=== PATIENT | female | born 2000 | race African-American/Black ===

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

== ENCOUNTER 2018-09-20 14:32 | Emergency (ER) | payer MEDICAID ==
[~2018-09-20] VITALS: Ht 157.5 cm; Wt 102.3 kg
[2018-09-20 14:38] VITALS: Ht 157.5 cm; Wt 102.3 kg
[2018-09-20 15:09] LABS: BASOPHILS 0.2 % (0-2); EOSINOPHILS 1.6 % (0-7); HEMATOCRIT 41.1 % (36.0-48.0); HEMOGLOBIN 14.1 g/dL (12-16); IMMATURE GRANULOCYTES 0.1 % (0-5); LYMPHOCYTES 41.5 % (15-50); MCH 29.1 pg (26.0-34.0); MCHC 34.3 g/dL (31.0-37.0); MCV 84.7 fL (80.0-100.0); MEAN PLATELET VOLUME 9.6 fL (7.4-10.4); MONOCYTES 8.1 % (2-11); NEUTROPHILS 48.5 % (40-80); PLATELET COUNT 272 10x3/uL (130-400); RBC 4.85 10x6/uL (4.00-5.40); RDW 12.9 % (11.5-14.5)
[2018-09-20 15:35] LABS: ALBUMIN 3.7 g/dL (3.4-5.0); ALKALINE PHOSPHATASE 88 U/L (46-116); ALT (SGPT) 66 U/L (10-68); CALC OSMOLALITY 272 mosm/kg (275-300); CALCIUM 8.6 mg/dL (8.5-10.1); CARBON DIOXIDE 31.4 mmol/L (21.0-32.0); CHLORIDE - SERUM 103 mmol/L (98-107); CREATININE - SERUM 0.6 mg/dL (0.6-1.3); GLUCOSE 78 mg/dL (74-106); POTASSIUM - SERUM 4.1 mmol/L (3.5-5.1); PROTEIN - SERUM 7.4 g/dL (6.4-8.2); SODIUM 138 mmol/L (136-145); UREA NITROGEN 7 mg/dL (7-18); eGFR NON AFRICAN AMERICAN > 90 mL/min (90-120)
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
[2018-09-20 15:46] LABS: CKMB 0.7 U/L (0.0-3.6); CREATINE KINASE 88 UL (21-215); MAGNESIUM - SERUM 1.8 mg/dL (1.8-2.4)
[2018-09-20 15:48] LABS: TROPONIN-I < 0.017 ng/mL (0.000-0.060)
[2018-09-20 15:56] LABS: APPEARANCE CLEAR (CLEAR); BILIRUBIN NEGATIVE (NEGATIVE); COLOR YELLOW (YELLOW); GLUCOSE NEGATIVE (NEGATIVE); KETONE NEGATIVE (NEGATIVE); NITRITE NEGATIVE (NEGATIVE); PROTEIN NEGATIVE (NEGATIVE); UROBILINOGEN NORMAL (NORMAL)
[2018-09-20 16:07] LABS: HCG URINE NEGATIVE (NEGATIVE)
[2018-09-20 16:57] VITALS: BP 124/76
[2018-09-20] MEDS ORDERED: ZOFRAN8 MG PO (17:13)
[2018-09-20] MEDS ORDERED: OMEPRAZOLE40 MG PO (17:13)
[2018-09-20] MEDS ORDERED: TORADOL10 MG PO (17:13)
== END 2018-09-20 17:35 | disposition home or self-care (01) ==
LOC: D.ER 14:32
PROVIDERS: Family Medicine
DX: R07.81 Pleurodynia (principal); R11.2 Nausea with vomiting, unspecified; R10.11 Right upper quadrant pain

== ENCOUNTER 2019-01-16 15:46 | Emergency (ER) | payer MEDICAID ==
[~2019-01-16] VITALS: Ht 157.5 cm; Wt 104.5 kg
[~2019-01-16 15:46] MED LIST: OMEPRAZOLE40 MG PO; TORADOL10 MG PO; ZOFRAN8 MG PO
[2019-01-16 15:53] VITALS: Ht 157.5 cm; Wt 104.5 kg
[2019-01-16 16:12] LABS: BASOPHILS 0.3 % (0-2); EOSINOPHILS 2.3 % (0-7); HEMATOCRIT 42.3 % (36.0-48.0); HEMOGLOBIN 14.1 g/dL (12-16); IMMATURE GRANULOCYTES 0.1 % (0-5); LYMPHOCYTES 48.7 % (15-50); MCH 29.6 pg (26.0-34.0); MCHC 33.3 g/dL (31.0-37.0); MCV 88.7 fL (80.0-100.0); MEAN PLATELET VOLUME 9.8 fL (7.4-10.4); MONOCYTES 7.9 % (2-11); NEUTROPHILS 40.7 % (40-80); RBC 4.77 10x6/uL (4.00-5.40); RDW 12.9 % (11.5-14.5); WBC 7.1 10x3/uL (4.8-10.8)
[2019-01-16 16:13] LABS: PLATELET COUNT 334 10x3/uL (130-400)
[2019-01-16 16:21] LABS: CALC OSMOLALITY 281 mosm/kg (275-300); CALCIUM 8.9 mg/dL (8.5-10.1); CARBON DIOXIDE 29.6 mmol/L (21.0-32.0); CHLORIDE - SERUM 104 mmol/L (98-107); CREATININE - SERUM 0.8 mg/dL (0.6-1.3); GLUCOSE 102 mg/dL (74-106); POTASSIUM - SERUM 4.2 mmol/L (3.5-5.1); SODIUM 142 mmol/L (136-145); UREA NITROGEN 10 mg/dL (7-18); eGFR NON AFRICAN AMERICAN > 90 mL/min (90-120)
[2019-01-16 16:29] LABS: ALKALINE PHOSPHATASE 92 U/L (46-116); ALT (SGPT) 70 U/L (10-68); BILIRUBIN - TOTAL 0.24 mg/dL (0.2-1.3); PROTEIN - SERUM 8.1 g/dL (6.4-8.2)
[2019-01-16 16:53] LABS: APPEARANCE CLEAR (CLEAR); BILIRUBIN NEGATIVE (NEGATIVE); COLOR PINK (YELLOW); GLUCOSE NEGATIVE (NEGATIVE); KETONE NEGATIVE (NEGATIVE); NITRITE NEGATIVE (NEGATIVE); PROTEIN NEGATIVE (NEGATIVE); UROBILINOGEN NORMAL (NORMAL)
[2019-01-16 16:54] LABS: BACTERIA FEW /hpf (NEGATIVE); EPITHELIAL CELLS OCC /hpf (0-5); RED CELLS - URINE 0-5 /hpf (0-5); WHITE CELLS - URINE OCC /hpf (NEGATIVE)
--- NOTE | 2019-01-16 17:06 | NUR ---
DR. CROOK NOTIFIED AND SITTER ORDERED. SITTER AT BEDSIDE. NOTIFIED CHARGE NURSE AND ATTEDING IN REGARDS TO ASSESSMENT FINDINGS. RESOURCES GIVEN TO PATIENT AND SAFETY PLAN INITIATED.
[2019-01-16 17:23] LABS: UDS - AMPHET NEGATIVE QUAL (NEGATIVE); UDS - BARB NEGATIVE QUAL (NEGATIVE); UDS - BENZO NEGATIVE QUAL (NEGATIVE); UDS - COCAINE NEGATIVE QUAL (NEGATIVE); UDS - OPIATE NEGATIVE QUAL (NEGATIVE); UDS - PCP NEGATIVE QUAL (NEGATIVE); UDS - THC NEGATIVE QUAL (NEGATIVE)
[2019-01-16 19:57] VITALS: BP 128/89
== END 2019-01-16 20:38 ==
LOC: D.ER 15:46
PROVIDERS: Emergency Medicine
DX: F41.8 Other specified anxiety disorders (principal); R45.851 Suicidal ideations

== ENCOUNTER 2019-02-14 13:00 | Emergency (ER) | payer MEDICAID ==
[~2019-02-14] VITALS: Ht 157.5 cm; Wt 107.3 kg
[2019-02-14 13:13] VITALS: Ht 157.5 cm; Wt 107.3 kg
[2019-02-14] MEDS ORDERED: CELEXA20 MG PO (13:14)
[2019-02-14] MEDS ORDERED: LITHIUM CARBON300 MG PO ×2 (13:15)
[2019-02-14 16:11] VITALS: BP 118/67
== END 2019-02-14 16:11 | disposition home or self-care (01) ==
LOC: D.ER 13:00
DX: L50.9 Urticaria, unspecified (principal)

== ENCOUNTER 2019-05-25 17:26 | Emergency (ER) | payer OTHER ==
[~2019-05-25] VITALS: Ht 157.5 cm; Wt 104.5 kg
[~2019-05-25 17:26] MED LIST changes: +CELEXA20 MG PO; +LITHIUM CARBON300 MG PO
[2019-05-25 17:38] VITALS: Ht 157.5 cm; Wt 104.5 kg
[2019-05-25 18:50] VITALS: BP 124/68
== END 2019-05-25 18:54 | disposition home or self-care (01) ==
LOC: D.ER 17:26
DX: R05 Cough (principal)

== ENCOUNTER 2019-07-26 15:58 | Emergency (ER) | payer OTHER ==
[~2019-07-26] VITALS: Ht 157.5 cm; Wt 102.7 kg
[2019-07-26 16:10] VITALS: BP 144/103; Ht 157.5 cm; Wt 102.7 kg
[2019-07-26] MEDS ORDERED: SEROQUEL25 MG PO (16:12)
[2019-07-26 16:46] LABS: BASOPHILS 0.3 % (0-2); EOSINOPHILS 2.2 % (0-7); HEMATOCRIT 43.3 % (36.0-48.0); HEMOGLOBIN 14.2 g/dL (12-16); IMMATURE GRANULOCYTES 0.1 % (0-5); LYMPHOCYTES 41.4 % (15-50); MCH 27.9 pg (26.0-34.0); MCHC 32.8 g/dL (31.0-37.0); MCV 85.1 fL (80.0-100.0); MEAN PLATELET VOLUME 9.8 fL (7.4-10.4); MONOCYTES 8.9 % (2-11); NEUTROPHILS 47.1 % (40-80); PLATELET COUNT 342 10x3/uL (130-400); RBC 5.09 10x6/uL (4.00-5.40); RDW 13.2 % (11.5-14.5); WBC 7.7 10x3/uL (4.8-10.8)
[2019-07-26 16:56] LABS: CALC OSMOLALITY 270 mosm/kg (275-300); CARBON DIOXIDE 23.8 mmol/L (21.0-32.0); CHLORIDE - SERUM 104 mmol/L (98-107); CREATININE - SERUM 0.7 mg/dL (0.6-1.3); GLUCOSE 86 mg/dL (74-106); POTASSIUM - SERUM 3.7 mmol/L (3.5-5.1); SODIUM 137 mmol/L (136-145); UREA NITROGEN 7 mg/dL (7-18); eGFR NON AFRICAN AMERICAN > 90 mL/min (90-120)
[2019-07-26 16:59] LABS: HCG SERUM NEGATIVE (NEGATIVE)
[2019-07-26 17:02] LABS: ALBUMIN 3.9 g/dL (3.4-5.0); ALKALINE PHOSPHATASE 91 U/L (30-120); ALT (SGPT) 60 U/L (10-68); BILIRUBIN - TOTAL 0.21 mg/dL (0.2-1.3); PROTEIN - SERUM 7.9 g/dL (6.4-8.2)
[2019-07-26 19:32] LABS: BILIRUBIN NEGATIVE (NEGATIVE); GLUCOSE NEGATIVE (NEGATIVE); KETONE NEGATIVE (NEGATIVE); NITRITE NEGATIVE (NEGATIVE); RED CELLS - URINE >50 /hpf (0-5); SPECIFIC GRAVITY 1.025 (1.005-1.020); UROBILINOGEN NORMAL (NORMAL); WHITE CELLS - URINE 0-5 /hpf (NEGATIVE)
[2019-07-26 19:33] LABS: BACTERIA FEW /hpf (NEGATIVE); EPITHELIAL CELLS 0-5 /hpf (0-5)
== END 2019-07-26 21:45 | disposition home or self-care (01) ==
LOC: D.ER 15:58
PROVIDERS: Family Medicine
DX: N93.9 Abnormal uterine and vaginal bleeding, unspecified (principal); R10.30 Lower abdominal pain, unspecified